=== PATIENT | male | born 1940 | race Caucasian/White ===

== ENCOUNTER 2016-07-05 10:51 | Inpatient (IN) ==
--- NOTE | 2016-07-05 11:05 | Emergency Department Note ---
Disposition Clinical Impression: Hyperglycemia Disposition: Admitted As Inpatient Condition: Fair Referrals: Ramone Sharma MD [Primary Care Provider] - Forms: Work/School Release, ED Satisfaction Letter Time of Disposition: 12:44 SOB HPI - General Chief Complaint: ED General Medical Stated Complaint: high blood sugar Time Seen by Provider: 07/05/16 11:02 Source: patient Limitations: physical limitation Nursing Notes Reviewed: Yes Vital Signs Reviewed: Yes - History of Present Illness 76-year-old with a history of CHF who comes in has an has Lasix for 3 days increasing swelling generalized weakness and shortness of breath. states she's not able to take care of the patient anymore. Echocardiogram done in October 2015 shows an EF of 55-60%. Pt Subjective Complaint: shortness of breath Onset (ago): Just [employer] Context: other (Not taking his Lasix) Known history of: congestive heart failure - Related Data Home Medications Medication Instructions Recorded Confirmed Furosemide [Lasix] 40 mg PO DAILY 11/20/15 07/05/16 Metformin [Glucophage] 1,000 mg PO BID 11/20/15 07/05/16 Tamsulosin [Flomax] 0.4 mg PO DAILY 11/20/15 07/05/16 Aspirin [Lo-Dose Aspirin EC] 81 mg PO DAILY 07/05/16 07/05/16 Atorvastatin [Lipitor] 20 mg PO HS 07/05/16 07/05/16 Dabigatran [Pradaxa] 150 mg PO DAILY 07/05/16 07/05/16 Insulin Glargine,Hum.rec.anlog 12 unit SQ BID 07/05/16 07/05/16 [Lantus Solostar] Insulin LISPRO [HumaLOG] 0 units SQ TIDWM PRN 07/05/16 07/05/16 Isosorbide MONOnitrate (24 HR) 60 mg PO DAILY 07/05/16 07/05/16 [Imdur] Metoprolol Tartrate 25 mg PO BID 07/05/16 07/05/16 Allergies Allergy/AdvReac Type Severity Reaction Status Date / Time Penicillins Allergy See Verified 10/02/15 16:22 Comments Sulfa (Sulfonamide Allergy See Verified 10/02/15 16:22 Antibiotics) Comments Past Medical History - Past Medical History Medical history: Reports: COPD, CVA, diabetes, hypertension Surgical history: Reports: coronary bypass (CABG), herniorrhaphy, pacemaker/AICD Psychiatric history: Reports: no psych history - Social History Smoking Status: Never smoker Smokeless Tobacco Status: No Alcohol use: Reports: none Drug use: Reports: none Physical Exam - General Limitations: physical limitation General appearance: alert Course - Reevaluation(s) Reevaluation #1: 76-year-old who comes in complaining of increased lower extremity edema elevated blood sugars generalized weakness. Patient's exam is nonlocalizing. Kos is elevated at 590. Previous echo done 2016 shows an EF of 55-60. Time: 13:29 - Consultations Consultation #1: Discussed with Kristel Mccormick, analilia. Time: 13:28 Vital Signs Temperature 97.9 F 07/05/16 10:54 Pulse Rate 94 07/05/16 10:54 Respiratory Rate 20 07/05/16 10:54 Blood Pressure 162/102 07/05/16 10:54 O2 Sat by Pulse Oximetry 92 L 07/05/16 10:54 Temperature 97.9 F 07/05/16 10:54 Pulse Rate 67 07/05/16 12:57 Respiratory Rate 16 07/05/16 12:57 Blood Pressure 167/105 07/05/16 12:57 O2 Sat by Pulse Oximetry 97 07/05/16 12:57 Oxygen Delivery Oxygen Delivery Room Air Shortness of Breath/Dyspnea - Lab Data Result diagrams: 07/05/16 12:07 07/05/16 12:07 Lab Results 07/05/16 07/05/16 07/05/16 Range/Units 11:12 12:07 12:07 WBC 7.8 (4.3-11.1) K/mcL RBC 4.09 L (4.19-5.50) M/mcL Hgb 11.3 L (12.9-16.9) g/dL Hct 35.1 L (37.5-50.1) % MCV 85.8 (83.0-100.0) fL MCH 27.6 L (28.0-33.3) pg MCHC 32.2 (31.6-35.5) g/dL RDW 14.0 (11.5-14.5) % Plt Count 168 (140-400) K/mcL MPV 11.0 (9.4-12.4) fL Immature Gran % 0.5 (0-4) % Seg Neutrophils % 77.8 % Lymphocytes % 13.2 % Monocytes % 7.0 % Eosinophils % 1.0 % Basophils % 0.5 % Neutrophils # 6.0 (1.6-8.9) K/mcL Lymphocytes # 1.0 (0.6-4.6) K/mcL Monocytes # 0.5 (0.0-1.3) K/mcL Eosinophils # 0.1 (0.0-0.6) K/mcL Basophils # 0.0 (0.0-0.2) K/mcL PT (9.4-12.1) Seconds INR APTT (26.0-36.0) Seconds Sodium (136-145) mEq/L Potassium (3.5-4.5) mEq/L Chloride (98-109) mEq/L Carbon Dioxide (19-29) mEq/L BUN (8-26) mg/dL Creatinine (0.72-1.25) mg/dL Est GFR ( Amer) (> 60) Est GFR (Non-Af Amer) (> 60) BUN/Creatinine Ratio (6-26) Glucose (70-99) mg/dL Calculated Osmolality (280-300) Lactic Acid 2.5 H (0.5-2.2) mmol/L Calcium (8.6-10.8) mg/dL Troponin I (0-0.03) ng/mL B-Natriuretic Peptide (0-100) pg/mL Urine Color Yellow (Yellow) Urine Clarity Clear (Clear) Urine pH 6.0 (5.0-8.0) pH Units Ur Specific [place] 1.025 (1.010-1.025) Urine Protein >=300 H (Neg-Trace) mg/dL Urine Glucose (UA) >=1000 H (Normal) mg/dL Urine Ketones Negative (Negative) mg/dL Urine Blood Small H (Negative) Urine Nitrite Negative (Negative) Urine Bilirubin Negative (Negative) Urine Urobilinogen Normal (Normal) mg/dL Ur Leukocyte Esterase Negative (Negative) Urine Microscopic RBC 5-15 H (0-3) per hpf Urine Microscopic WBC 0-3 (0-3) per hpf Ur Squamous Epith Cells Moderate H (None-Few) per lpf Urine Bacteria None Seen (None-Few) per hpf Hyaline Casts None Seen (None-Few) per lpf Ur Culture Indicated? NO (NO) 07/05/16 07/05/16 07/05/16 Range/Units 12:07 12:07 12:07 WBC (4.3-11.1) K/mcL RBC (4.19-5.50) M/mcL Hgb (12.9-16.9) g/dL Hct (37.5-50.1) % MCV (83.0-100.0) fL MCH (28.0-33.3) pg MCHC (31.6-35.5) g/dL RDW (11.5-14.5) % Plt Count (140-400) K/mcL MPV (9.4-12.4) fL Immature Gran % (0-4) % Seg Neutrophils % % Lymphocytes % % Monocytes % % Eosinophils % % Basophils % % Neutrophils # (1.6-8.9) K/mcL Lymphocytes # (0.6-4.6) K/mcL Monocytes # (0.0-1.3) K/mcL Eosinophils # (0.0-0.6) K/mcL Basophils # (0.0-0.2) K/mcL PT 14.9 H (9.4-12.1) Seconds INR 1.4 APTT 40.0 H (26.0-36.0) Seconds Sodium 127 L (136-145) mEq/L Potassium 4.0 (3.5-4.5) mEq/L Chloride 90 L (98-109) mEq/L Carbon Dioxide 27 (19-29) mEq/L BUN 23 (8-26) mg/dL Creatinine 1.62 H (0.72-1.25) mg/dL Est GFR ( Amer) 51 L (> 60) Est GFR (Non-Af Amer) 42 L (> 60) BUN/Creatinine Ratio 14 (6-26) Glucose 590 H* (70-99) mg/dL Calculated Osmolality 295 (280-300) Lactic Acid (0.5-2.2) mmol/L Calcium 8.8 (8.6-10.8) mg/dL Troponin I 0.07 H* (0-0.03) ng/mL B-Natriuretic Peptide (0-100) pg/mL Urine Color (Yellow) Urine Clarity (Clear) Urine pH (5.0-8.0) pH Units Ur Specific [place] (1.010-1.025) Urine Protein (Neg-Trace) mg/dL Urine Glucose (UA) (Normal) mg/dL Urine Ketones (Negative) mg/dL Urine Blood (Negative) Urine Nitrite (Negative) Urine Bilirubin (Negative) Urine Urobilinogen (Normal) mg/dL Ur Leukocyte Esterase (Negative) Urine Microscopic RBC (0-3) per hpf Urine Microscopic WBC (0-3) per hpf Ur Squamous Epith Cells (None-Few) per lpf Urine Bacteria (None-Few) per hpf Hyaline Casts (None-Few) per lpf Ur Culture Indicated? (NO) 07/05/16 Range/Units 12:07 WBC (4.3-11.1) K/mcL RBC (4.19-5.50) M/mcL Hgb (12.9-16.9) g/dL Hct (37.5-50.1) % MCV (83.0-100.0) fL MCH (28.0-33.3) pg MCHC (31.6-35.5) g/dL RDW (11.5-14.5) % Plt Count (140-400) K/mcL MPV (9.4-12.4) fL Immature Gran % (0-4) % Seg Neutrophils % % Lymphocytes % % Monocytes % % Eosinophils % % Basophils % % Neutrophils # (1.6-8.9) K/mcL Lymphocytes # (0.6-4.6) K/mcL Monocytes # (0.0-1.3) K/mcL Eosinophils # (0.0-0.6) K/mcL Basophils # (0.0-0.2) K/mcL PT (9.4-12.1) Seconds INR APTT (26.0-36.0) Seconds Sodium (136-145) mEq/L Potassium (3.5-4.5) mEq/L Chloride (98-109) mEq/L Carbon Dioxide (19-29) mEq/L BUN (8-26) mg/dL Creatinine (0.72-1.25) mg/dL Est GFR ( Amer) (> 60) Est GFR (Non-Af Amer) (> 60) BUN/Creatinine Ratio (6-26) Glucose (70-99) mg/dL Calculated Osmolality (280-300) Lactic Acid (0.5-2.2) mmol/L Calcium (8.6-10.8) mg/dL Troponin I (0-0.03) ng/mL B-Natriuretic Peptide 1018 H (0-100) pg/mL Urine Color (Yellow) Urine Clarity (Clear) Urine pH (5.0-8.0) pH Units Ur Specific [place] (1.010-1.025) Urine Protein (Neg-Trace) mg/dL Urine Glucose (UA) (Normal) mg/dL Urine Ketones (Negative) mg/dL Urine Blood (Negative) Urine Nitrite (Negative) Urine Bilirubin (Negative) Urine Urobilinogen (Normal) mg/dL Ur Leukocyte Esterase (Negative) Urine Microscopic RBC (0-3) per hpf Urine Microscopic WBC (0-3) per hpf Ur Squamous Epith Cells (None-Few) per lpf Urine Bacteria (None-Few) per hpf Hyaline Casts (None-Few) per lpf Ur Culture Indicated? (NO) - EKG Data EKG attestation: Yes I reviewed and interpreted this EKG. EKG results narrative: Paced rhythm
[2016-07-05 11:21] LABS: Bilirubin,Urine Negative (Negative); Blood,Urine Small (Negative); Clarity,Urine Clear (Clear); Color,Urine Yellow (Yellow); Glucose,Urine (UA) >=1000 mg/dL (Normal); Ketones,Urine Negative (Negative); Leukocyte Esterase,Urine Negative (Negative); Nitrite,Urine Negative (Negative); Protein,Urine >=300 mg/dL (Neg-Trace); Specific Gravity,Urine 1.025 (1.010-1.025); Urobilinogen,Urine Normal (Normal)
[2016-07-05 11:24] LABS: Bacteria,Urine None Seen per hpf (None-Few); Hyaline Casts,Urine None Seen per lpf (None-Few); Squamous Epithelial Cell,Urine Moderate per lpf (None-Few); WBC,Urine 0-3 per hpf (0-3)
[2016-07-05 12:19] LABS: Basophils % 0.5 %; Eosinophils # 0.1 K/mcL (0.0-0.6); Hematocrit 35.1 % (37.5-50.1); Hemoglobin 11.3 g/dL (12.9-16.9); Immature Granulocytes % 0.5 % (0-4); Lymphocytes % 13.2 %; Mean Corpuscular HGB Conc 32.2 g/dL (31.6-35.5); Mean Corpuscular Hemoglobin 27.6 pg (28.0-33.3); Mean Corpuscular Volume 85.8 fL (83.0-100.0); Monocytes # 0.5 K/mcL (0.0-1.3); Platelet Count 168 K/mcL (140-400); Red Blood Count 4.09 M/mcL (4.19-5.50); Segmented Neutrophils % 77.8 %
[2016-07-05 12:24] LABS: INR 1.4; Prothrombin Time 14.9 Seconds (9.4-12.1)
[2016-07-05 12:33] LABS: Calcium 8.8 mg/dL (8.6-10.8)
[2016-07-05] MEDS ORDERED: Insulin Human Regular 10 UNIT in 0.9 % Sodium Chloride 10 ML IV ONE (12:41)
[2016-07-05] MEDS ORDERED: Naloxone 0.4 MG/ML INJ IVP PRN (16:34)
[2016-07-05] MEDS ORDERED: *HR* Dextrose 50 % in Water (Syg) 50 ML SYRINGE IVP PRN (16:38)
[2016-07-05] MEDS ORDERED: Dextrose Gel 15 GM PO PRN ×2 (16:38)
[2016-07-05] MEDS ORDERED: D5% in Water 1,000 ML IV PRN (16:40)
[2016-07-05 17:47] LABS: Hemoglobin A1C 12.4 %
[2016-07-05] MEDS ORDERED: Insulin LISPRO 300 UNITS/3 ML VIAL SQ STA (17:48)
[2016-07-05] MEDS: *HR* LORazepam 0.5 MG TABLET PO PRN (20:49)
[2016-07-05] MEDS: *HR* Dabigatran 150 MG CAPSULE PO SCH (20:50)
[2016-07-05] MEDS: Insulin LISPRO 300 UNITS/3 ML VIAL SQ SCH (20:50)
[2016-07-05] MEDS: Insulin DETEMIR 100 UNIT/ML X5UNITS SQ SCH (20:51)
[2016-07-05] MEDS ORDERED: Sennosides 8.6 MG TABLET PO SCH (22:15)
[2016-07-05] MEDS ORDERED: Sennosides 8.6 MG TABLET PO PRN (22:28)
--- NOTE | 2016-07-05 22:56 | Internal Med History&Physical ---
<Kristel Mccormick - Last Filed: 07/06/16 01:29> Date of Encounter: 07/06/16 Time of Encounter: 22:50 Assessment and Plan (1) Hyperglycemia Current visit: Yes Status: Acute Patient reports he has not had any insulin in 3 days. Blood sugar 590. Anion gap of 10. UA shows large amount of protein but no ketones. He was given 10 units of insulin IV in the emergency department. Recheck of blood sugar came down to 398. He was given another 15 units subcutaneously Basal dose of insulin restarted with Levemir 12 units twice a day Check blood sugar every 4 hours sliding scale correction dose every 4 hours. Most recent blood sugar at 9 PM was 334 he was given his basal dose plus 10 units sliding scale correction dose. (2) Acute on chronic diastolic (congestive) heart failure Current visit: Yes Status: Acute Patient reports increasing lower extremity swelling. Reports he has not had his Lasix in 3 days. BNP elevated at 1018. Chest x-ray shows no evidence of failure or pleural fluid. Lungs are clear bilaterally on auscultation. He denies any shortness of breath, cough, dyspnea. Last echocardiogram was October 2015 and showed LVEF of 55-60% indeterminate diastolic function Will resume home dose of by mouth Lasix. (3) Edema Current visit: No Status: Acute Patient with mild bilateral lower extremity edema reportedly increased from baseline as he has not taken his Lasix in 3 days. Resume home dose of Lasix. Qualifiers: Edema type: localized Qualified Code(s): R60.0 - Localized edema (4) Elevated troponin Current visit: No Status: Acute Patient denies any chest pain or dyspnea. Troponin emergency department was elevated to 0.07, but down from his previous troponin of 0.11. EKG showed paced rhythm with no ischemic changes. 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 (5) Acute kidney injury Current visit: Yes Status: Acute Creatinine of 1.62 is elevated up from previous of 1.2. UA was not concerning for infection. He is spilling large amounts of protein in his urine likely related to his hyperglycemia. Not giving IV fluids because of concern for CHF. retroperitoneal ultrasound Postvoid residual Recheck chemistry in the morning (6) DVT prophylaxis Current visit: Yes Status: Acute To chair twice a day Antiembolic stockings Patient is on Pradaxa, additional pharmacologic prophylaxis is unnecessary Internal Medicine - H&P: HPI Chief complaint: increased swelling Admitted From: Emergency Dept Plans for Post Hospital Care: Home History of present illness: Mr. Benites is a 76 year old male with hypertension, diabetes, COPD, congestive heart failure, coronary artery disease status post CABG, pacemaker AICD, who reported today emergency department today with complaints of increased swelling in bilateral lower extremities. He reports his "stops taking care of me" three days ago and he has not been getting his insulin. He denied any shortness of breath, as pain, palpitations, lightheadedness, dizziness. He reports increased bilateral lower extremity swelling and as a result of this feels like he cannot walk. Evaluation in the emergency department included chest x-ray which showed no evidence of heart failure or pleural fluid. His BNP was elevated to 1018, his troponin was elevated at 0.08 he was hyponatremic with sodium of 127, hyperglycemic with blood sugar of 590. He has Acute kidney injury with Creatinine of 1.62, up from previous of 1.22. Anion gap is 10 creatinine 1.6 to which is consistent with baseline EKG. Lactic acid mildly elevated 2.5. He showed significant urine protein but was negative for ketones. He is given 10 units of IV insulin in the emergency department blood sugar came down to 300s on recheck. On evaluation, patient is alert and oriented 3, in no acute distress. He pain, denies any shortness of breath. His heart is regular rate and rhythm, lungs are clear bilaterally to auscultation. Bilateral lower extremities have +2 edema is a chronic stage V pressure ulcer on his left heel with black eschar. Past Med Surg Social Fam HX - Past Medical History Medical history: CHF, COPD, coronary artery disease, CVA, diabetes, hypertension , renal disease Psychiatric history: no psych history - Past Surgical History Surgical History: coronary bypass (CABG), herniorrhaphy, pacemaker/AICD - Social History Smoking Status: Never smoker Smokeless Tobacco Status: No Alcohol use: none Drug use: none - Family History Father History Unknown: Yes Adopted: No Family Member Ethnicity: Non- Living Status: Hx Family Cardiac Disorders: Yes Hx Family Respiratory Disorders: No Hx Family Cancer: No Hx Family GI Disorders: No Hx Family Endocrine Disorder: Yes Hx Family Neuromuscular Disorders: No Hx Family Neurologic Disorders: No Hx Family HEENT Disorders: No Hx Family Autoimmune Disorders: No Mother History Unknown: Yes Living Status: Hx Family Cardiac Disorders: Yes Hx Family Musculoskeletal Disorders: Yes Internal Medicine - H&P: Meds Furosemide [Lasix] 40 mg PO DAILY 11/20/15 [History] Metformin [Glucophage] 1,000 mg PO BID 11/20/15 [History] Tamsulosin [Flomax] 0.4 mg PO DAILY 11/20/15 [History] Aspirin [Lo-Dose Aspirin EC] 81 mg PO DAILY 07/05/16 [History] Atorvastatin [Lipitor] 20 mg PO HS 07/05/16 [History] Dabigatran [Pradaxa] 150 mg PO DAILY 07/05/16 [History] Insulin Glargine,Hum.rec.anlog [Lantus Solostar] 12 unit SQ BID 07/05/16 [ History] Insulin LISPRO [HumaLOG] 0 units SQ TIDWM PRN 07/05/16 [History] Isosorbide MONOnitrate (24 HR) [Imdur] 60 mg PO DAILY 07/05/16 [History] Metoprolol Tartrate 25 mg PO BID 07/05/16 [History] Allergies Penicillins Allergy (Verified 10/02/15 16:22) See Comments Sulfa (Sulfonamide Antibiotics) Allergy (Verified 10/02/15 16:22) See Comments All Systems PM: A 10-system review of systems was performed and is negative for pertinent findings except as documented above in the HPI. - Constitutional Constitutional: no chills, no fever(s), no night sweats - EENT Eyes: no change in vision, no discharge, no pain, no photophobia Ears: no ear discharge, no ear pain, no tinnitus Nose, mouth and throat: no dysphagia, no nasal discharge, no neck pain, no sore throat - Cardiovascular Cardiovascular ROS IM: edema, no chest pain, no diaphoresis, no dyspnea, no lightheadedness, no palpitations, no syncope - Respiratory Respiratory: no cough, no dyspnea, no wheezing, no excessive phlegm production - Gastrointestinal Gastrointestinal: no abdominal pain, no diarrhea, no hematemesis, no hematochezia, no melena, no nausea, no vomiting - Musculoskeletal Musculoskeletal ROS IM: no numbness, no tingling - Integumentary Integumentary IM: non-healing lesions (left heel), no rash, no unusual bruising - Neurological Neurological ROS: no confusion, no convulsions, no focal weakness, no numbness, no tingling, no tremor(s) - Hematologic/Lymphatic Hematologic/Lymphatic: no easy bruising - Constitutional Vitals: Temp Pulse Resp BP Pulse Ox 98.2 F 68 17 136/74 94 L 07/05/16 15:35 07/05/16 21:00 07/05/16 21:00 07/05/16 21:00 07/05/16 21:00 General appearance: Present: A&O X 3, no acute distress - Head Head exam: Present: atraumatic, normocephalic - Eye Eye exam: Present: PERRL, conjuntiva pink, sclera anicteric Pupils: Present: PERRL - Neck Neck exam general surgery: Present: supple, trachea midline. Absent: lymphadenopathy - Respiratory Respiratory exam: Present: CTAB. Absent: accessory muscle use, rales, rhonchi, wheezes - Cardiovascular Cardiovascular exam: Present: RRR, +S1, +S2. Absent: diastolic murmur, gallop, rubs, systolic murmur - GI/Abdominal GI/Abdominal exam: Present: normal bowel sounds, soft, no peritoneal signs. Absent: distended, tenderness - Extremities Exam Extremities exam: Present: pedal edema (BLE +2 edema), warm, radial pulses palpable and symetrical. Absent: calf tenderness, cyanotic - Neurological Exam Neurological exam: Present: CN II-XII intact, oriented X3, no focal deficits. Absent: facial droop, speech deficit - Skin Skin exam: Present: dry, intact Additional comments: Left Heel stage 5 ulcer with black eschar. Internal Med - H&P Results - Labs CBC & Chem 7: 07/06/16 01:13 07/05/16 12:07 Labs: Cardiac Enzymes 07/05/16 Range/Units 17:40 Troponin I 0.07 H* (0-0.03) ng/mL All Lab Results (24 Hours) 07/05/16 07/05/16 07/05/16 Range/Units 11:12 12:07 12:07 WBC 7.8 (4.3-11.1) K/mcL RBC 4.09 L (4.19-5.50) M/mcL Hgb 11.3 L (12.9-16.9) g/dL Hct 35.1 L (37.5-50.1) % MCV 85.8 (83.0-100.0) fL MCH 27.6 L (28.0-33.3) pg MCHC 32.2 (31.6-35.5) g/dL RDW 14.0 (11.5-14.5) % Plt Count 168 (140-400) K/mcL MPV 11.0 (9.4-12.4) fL Immature Gran % 0.5 (0-4) % Seg Neutrophils % 77.8 % Lymphocytes % 13.2 % Monocytes % 7.0 % Eosinophils % 1.0 % Basophils % 0.5 % Neutrophils # 6.0 (1.6-8.9) K/mcL Lymphocytes # 1.0 (0.6-4.6) K/mcL Monocytes # 0.5 (0.0-1.3) K/mcL Eosinophils # 0.1 (0.0-0.6) K/mcL Basophils # 0.0 (0.0-0.2) K/mcL PT (9.4-12.1) Seconds INR APTT (26.0-36.0) Seconds Sodium (136-145) mEq/L Potassium (3.5-4.5) mEq/L Chloride (98-109) mEq/L Carbon Dioxide (19-29) mEq/L BUN (8-26) mg/dL Creatinine (0.72-1.25) mg/dL Est GFR ( Amer) (> 60) Est GFR (Non-Af Amer) (> 60) BUN/Creatinine Ratio (6-26) Glucose (70-99) mg/dL POC Glucose (58-89) Est Mean Plasma Glucose mg/dl Hemoglobin A1c ( - 5.6) % Calculated Osmolality (280-300) Lactic Acid 2.5 H (0.5-2.2) mmol/L Calcium (8.6-10.8) mg/dL Troponin I (0-0.03) ng/mL B-Natriuretic Peptide (0-100) pg/mL Urine Color Yellow (Yellow) Urine Clarity Clear (Clear) Urine pH 6.0 (5.0-8.0) pH Units Ur Specific [place] 1.025 (1.010-1.025) Urine Protein >=300 H (Neg-Trace) mg/dL Urine Glucose (UA) >=1000 H (Normal) mg/dL Urine Ketones Negative (Negative) mg/dL Urine Blood Small H (Negative) Urine Nitrite Negative (Negative) Urine Bilirubin Negative (Negative) Urine Urobilinogen Normal (Normal) mg/dL Ur Leukocyte Esterase Negative (Negative) Urine Microscopic RBC 5-15 H (0-3) per hpf Urine Microscopic WBC 0-3 (0-3) per hpf Ur Squamous Epith Cells Moderate H (None-Few) per lpf Urine Bacteria None Seen (None-Few) per hpf Hyaline Casts None Seen (None-Few) per lpf Ur Culture Indicated? NO (NO) 07/05/16 07/05/16 07/05/16 Range/Units 12:07 12:07 12:07 WBC (4.3-11.1) K/mcL RBC (4.19-5.50) M/mcL Hgb (12.9-16.9) g/dL Hct (37.5-50.1) % MCV (83.0-100.0) fL MCH (28.0-33.3) pg MCHC (31.6-35.5) g/dL RDW (11.5-14.5) % Plt Count (140-400) K/mcL MPV (9.4-12.4) fL Immature Gran % (0-4) % Seg Neutrophils % % Lymphocytes % % Monocytes % % Eosinophils % % Basophils % % Neutrophils # (1.6-8.9) K/mcL Lymphocytes # (0.6-4.6) K/mcL Monocytes # (0.0-1.3) K/mcL Eosinophils # (0.0-0.6) K/mcL Basophils # (0.0-0.2) K/mcL PT 14.9 H (9.4-12.1) Seconds INR 1.4 APTT 40.0 H (26.0-36.0) Seconds Sodium 127 L (136-145) mEq/L Potassium 4.0 (3.5-4.5) mEq/L Chloride 90 L (98-109) mEq/L Carbon Dioxide 27 (19-29) mEq/L BUN 23 (8-26) mg/dL Creatinine 1.62 H (0.72-1.25) mg/dL Est GFR ( Amer) 51 L (> 60) Est GFR (Non-Af Amer) 42 L (> 60) BUN/Creatinine Ratio 14 (6-26) Glucose 590 H* (70-99) mg/dL POC Glucose (58-89) Est Mean Plasma Glucose mg/dl Hemoglobin A1c ( - 5.6) % Calculated Osmolality 295 (280-300) Lactic Acid (0.5-2.2) mmol/L Calcium 8.8 (8.6-10.8) mg/dL Troponin I 0.07 H* (0-0.03) ng/mL B-Natriuretic Peptide (0-100) pg/mL Urine Color (Yellow) Urine Clarity (Clear) Urine pH (5.0-8.0) pH Units Ur Specific [place] (1.010-1.025) Urine Protein (Neg-Trace) mg/dL Urine Glucose (UA) (Normal) mg/dL Urine Ketones (Negative) mg/dL Urine Blood (Negative) Urine Nitrite (Negative) Urine Bilirubin (Negative) Urine Urobilinogen (Normal) mg/dL Ur Leukocyte Esterase (Negative) Urine Microscopic RBC (0-3) per hpf Urine Microscopic WBC (0-3) per hpf Ur Squamous Epith Cells (None-Few) per lpf Urine Bacteria (None-Few) per hpf Hyaline Casts (None-Few) per lpf Ur Culture Indicated? (NO) 07/05/16 07/05/16 07/05/16 Range/Units 12:07 12:07 15:41 WBC (4.3-11.1) K/mcL RBC (4.19-5.50) M/mcL Hgb (12.9-16.9) g/dL Hct (37.5-50.1) % MCV (83.0-100.0) fL MCH (28.0-33.3) pg MCHC (31.6-35.5) g/dL RDW (11.5-14.5) % Plt Count (140-400) K/mcL MPV (9.4-12.4) fL Immature Gran % (0-4) % Seg Neutrophils % % Lymphocytes % % Monocytes % % Eosinophils % % Basophils % % Neutrophils # (1.6-8.9) K/mcL Lymphocytes # (0.6-4.6) K/mcL Monocytes # (0.0-1.3) K/mcL Eosinophils # (0.0-0.6) K/mcL Basophils # (0.0-0.2) K/mcL PT (9.4-12.1) Seconds INR APTT (26.0-36.0) Seconds Sodium (136-145) mEq/L Potassium (3.5-4.5) mEq/L Chloride (98-109) mEq/L Carbon Dioxide (19-29) mEq/L BUN (8-26) mg/dL Creatinine (0.72-1.25) mg/dL Est GFR ( Amer) (> 60) Est GFR (Non-Af Amer) (> 60) BUN/Creatinine Ratio (6-26) Glucose (70-99) mg/dL POC Glucose 398 H (58-89) Est Mean Plasma Glucose 309 mg/dl Hemoglobin A1c 12.4 H ( - 5.6) % Calculated Osmolality (280-300) Lactic Acid (0.5-2.2) mmol/L Calcium (8.6-10.8) mg/dL Troponin I (0-0.03) ng/mL B-Natriuretic Peptide 1018 H (0-100) pg/mL Urine Color (Yellow) Urine Clarity (Clear) Urine pH (5.0-8.0) pH Units Ur Specific [place] (1.010-1.025) Urine Protein (Neg-Trace) mg/dL Urine Glucose (UA) (Normal) mg/dL Urine Ketones (Negative) mg/dL Urine Blood (Negative) Urine Nitrite (Negative) Urine Bilirubin (Negative) Urine Urobilinogen (Normal) mg/dL Ur Leukocyte Esterase (Negative) Urine Microscopic RBC (0-3) per hpf Urine Microscopic WBC (0-3) per hpf Ur Squamous Epith Cells (None-Few) per lpf Urine Bacteria (None-Few) per hpf Hyaline Casts (None-Few) per lpf Ur Culture Indicated? (NO) 07/05/16 Range/Units 17:40 WBC (4.3-11.1) K/mcL RBC (4.19-5.50) M/mcL Hgb (12.9-16.9) g/dL Hct (37.5-50.1) % MCV (83.0-100.0) fL MCH (28.0-33.3) pg MCHC (31.6-35.5) g/dL RDW (11.5-14.5) % Plt Count (140-400) K/mcL MPV (9.4-12.4) fL Immature Gran % (0-4) % Seg Neutrophils % % Lymphocytes % % Monocytes % % Eosinophils % % Basophils % % Neutrophils # (1.6-8.9) K/mcL Lymphocytes # (0.6-4.6) K/mcL Monocytes # (0.0-1.3) K/mcL Eosinophils # (0.0-0.6) K/mcL Basophils # (0.0-0.2) K/mcL PT (9.4-12.1) Seconds INR APTT (26.0-36.0) Seconds Sodium (136-145) mEq/L Potassium (3.5-4.5) mEq/L Chloride (98-109) mEq/L Carbon Dioxide (19-29) mEq/L BUN (8-26) mg/dL Creatinine (0.72-1.25) mg/dL Est GFR ( Amer) (> 60) Est GFR (Non-Af Amer) (> 60) BUN/Creatinine Ratio (6-26) Glucose (70-99) mg/dL POC Glucose (58-89) Est Mean Plasma Glucose mg/dl Hemoglobin A1c ( - 5.6) % Calculated Osmolality (280-300) Lactic Acid (0.5-2.2) mmol/L Calcium (8.6-10.8) mg/dL Troponin I 0.07 H* (0-0.03) ng/mL B-Natriuretic Peptide (0-100) pg/mL Urine Color (Yellow) Urine Clarity (Clear) Urine pH (5.0-8.0) pH Units Ur Specific [place] (1.010-1.025) Urine Protein (Neg-Trace) mg/dL Urine Glucose (UA) (Normal) mg/dL Urine Ketones (Negative) mg/dL Urine Blood (Negative) Urine Nitrite (Negative) Urine Bilirubin (Negative) Urine Urobilinogen (Normal) mg/dL Ur Leukocyte Esterase (Negative) Urine Microscopic RBC (0-3) per hpf Urine Microscopic WBC (0-3) per hpf Ur Squamous Epith Cells (None-Few) per lpf Urine Bacteria (None-Few) per hpf Hyaline Casts (None-Few) per lpf Ur Culture Indicated? (NO) - VTE Documentation of Mechanical Device: Graduated compression elastic hosiery <Pradeep Guerrero - Last Filed: 07/07/16 06:43> Date of Encounter: 07/07/16 Internal Medicine - H&P: HPI History of present illness: Mr. Benites is a 76 year old male All Systems PM: A 10-system review of systems was performed and is negative for pertinent findings except as documented above in the HPI. - Constitutional Vitals: Temp Pulse Resp BP Pulse Ox 98.3 F 64 20 124/80 93 L 07/07/16 04:30 07/07/16 04:30 07/07/16 04:30 07/07/16 04:30 07/07/16 04:30 Internal Med - H&P Results - Labs CBC & Chem 7: 07/06/16 01:13 07/06/16 01:13 - Impressions ITS Impressions Retroperitoneum Ultrasound 07/06/16 15:00 IMPRESSION: 1. Normal sonographic appearance of the bilateral kidneys. 2. Limited evaluation of the urinary bladder secondary to lack of complete filling. Grossly, the urinary bladder is unremarkable. 3. Stable mild prostatomegaly. D/ / 07/06/2016 16:54:16 Yang Martinez MD / Alysia Beltran Interpreting Provider: Yang Martinez MD - Attending Attestation I examined this patient and my medical decision-making was reviewed with the Advanced Practice Provider. I agree with the documented findings, disposition and treatment plan as described except to the extent set forth below. Patient presented to the hospital with increasing lower extremity swelling. On exam he is in no acute distress heart is regular S1-S2 with a systolic and a diastolic murmur. Lungs are clear. Lower extremity edema. We will admit the patient for treatment of acute heart failure. We will monitor on telemetry. Start diuresis with IV Lasix.
[2016-07-06] MEDS ORDERED: Famotidine 20 MG TABLET PO ONE ×2 (00:45→23:45)
[2016-07-06] MEDS: Insulin LISPRO 300 UNITS/3 ML VIAL SQ SCH ×7 (00:47→23:42)
[2016-07-06 01:22] LABS: Basophils % 0.5 %; Eosinophils # 0.1 K/mcL (0.0-0.6); Eosinophils % 1.5 %; Hematocrit 31.7 % (37.5-50.1); Hemoglobin 10.4 g/dL (12.9-16.9); Immature Granulocytes % 0.6 % (0-4); Lymphocytes # 1.5 K/mcL (0.6-4.6); Lymphocytes % 16.9 %; Mean Corpuscular HGB Conc 32.8 g/dL (31.6-35.5); Mean Corpuscular Hemoglobin 27.9 pg (28.0-33.3); Monocytes # 0.8 K/mcL (0.0-1.3); Monocytes % 8.5 %; Neutrophils # 6.4 K/mcL (1.6-8.9); Platelet Count 158 K/mcL (140-400); Red Blood Count 3.73 M/mcL (4.19-5.50)
[2016-07-06 01:36] LABS: Calcium 8.6 mg/dL (8.6-10.8); Potassium 3.7 mEq/L (3.5-4.5)
[2016-07-06] MEDS ORDERED: Furosemide 20 MG TABLET PO SCH (09:00)
[2016-07-06] MEDS: *HR* Dabigatran 150 MG CAPSULE PO SCH ×2 (09:43→21:17)
[2016-07-06] MEDS: Aspirin Enteric Coated 81 MG Tablet PO SCH (09:44)
[2016-07-06] MEDS: Isosorbide MONOnitrate (24 HR) 60 MG TAB.ER.24H PO SCH (09:44)
[2016-07-06] MEDS: Insulin DETEMIR 100 UNIT/ML X5UNITS SQ SCH ×2 (09:45→21:31)
--- NOTE | 2016-07-06 15:51 | Internal Med Progress Note ---
<Yasir Quiñones - Last Filed: 07/06/16 15:48> Date of Encounter: 07/06/16 Time of Encounter: 15:48 - Assessment and plan (1) Hyperglycemia Current Visit: Yes Status: Acute Assessment and plan: Likely related to noncompliance with this medicine. No evidence of DKA or HHS. Blood sugars have been much improved once restarted on insulin. Continue insulin. (2) Acute kidney injury Current Visit: Yes Status: Acute Assessment and plan: Gradually improving. Good urine output. Likely related to intravascular depletion in the setting of third spacing. Continue diuresis and will continue to monitor renal function (3) Acute on chronic diastolic (congestive) heart failure Current Visit: Yes Status: Acute Assessment and plan: Acute fluid overload related to patient being without his Lasix. Patient is diuresing well. Continue Lasix. (4) Elevated troponin Current Visit: No Status: Acute Assessment and plan: Likely related to demand ischemia in the setting of hyperglycemia and acute fluid overload as well as acute kidney injury. Troponins plateaued. Doubt acute coronary syndrome. (5) DVT prophylaxis Current Visit: Yes Status: Acute Assessment and plan: Currently on Pradaxa - Subjective Interval history: Patient seen and examined at bedside. Patient has no complaints at this time. He states the swelling is slightly improved. He denies chest pain, shortness of breath, fever, chills. - Constitutional Vitals: Temp Pulse Resp BP Pulse Ox 97.1 F L 61 18 137/88 95 07/06/16 07:27 07/06/16 11:43 07/06/16 11:43 07/06/16 11:43 07/06/16 11:43 General appearance: Present: A&O X 3, no acute distress - Respiratory Respiratory exam: Present: CTAB. Absent: rales, rhonchi, wheezes - Cardiovascular Cardiovascular exam: Present: RRR. Absent: gallop, rubs, systolic murmur - GI/Abdominal GI/Abdominal exam: Present: normal bowel sounds, soft. Absent: distended, tenderness - Extremities Exam Extremities exam: Present: pedal edema (trace) - Neurological Exam Neurological exam: Present: alert, altered, oriented X3, no focal deficits Internal Medicine: Result - Labs CBC & Chem 7: 07/06/16 01:13 07/06/16 01:13 Labs: Short CBC 07/06/16 Range/Units 01:13 WBC 8.8 (4.3-11.1) K/mcL Hgb 10.4 L (12.9-16.9) g/dL Hct 31.7 L (37.5-50.1) % Plt Count 158 (140-400) K/mcL Neutrophils # 6.4 (1.6-8.9) K/mcL BMP 07/06/16 01:13 Sodium 131 L Potassium 3.7 Chloride 94 L Carbon Dioxide 30 H BUN 28 H Creatinine 1.52 H Glucose 257 H Calcium 8.6 Cardiac Enzymes 07/05/16 07/06/16 Range/Units 17:40 01:13 Troponin I 0.07 H* 0.07 H* (0-0.03) ng/mL - ABG Interpretation ABG results: PT/INR, D-dimer PT 14.9 Seconds (9.4-12.1) H 07/05/16 12:07 - VTE Documentation of Mechanical Device: Graduated compression elastic hosiery Consult Discharge Plan - Plan Referrals: Ramone Sharma MD [Primary Care Provider] - <Lance Fournier - Last Filed: 07/06/16 18:37> Date of Encounter: 07/06/16 - Assessment and plan (1) Acute on chronic diastolic (congestive) heart failure Current Visit: Yes Status: Acute (2) Diabetes Current Visit: Yes Status: Acute Qualifiers: Diabetes mellitus type: type 2 Diabetes mellitus complication status: with hyperglycemia Diabetes mellitus detention insulin use: with detention use Qualified Code(s): E11.65 - Type 2 diabetes mellitus with hyperglycemia; Z79.4 - prison (current) use of insulin (3) Acute kidney injury Current Visit: Yes Status: Acute (4) Hypertension Current Visit: Yes Status: Acute Qualifiers: Hypertension type: essential hypertension Qualified Code(s): I10 - Essential (primary) hypertension - Constitutional Vitals: Temp Pulse Resp BP Pulse Ox 97.1 F L 61 18 137/88 95 07/06/16 07:27 07/06/16 11:43 07/06/16 11:43 07/06/16 11:43 07/06/16 11:43 Internal Medicine: Result - Labs CBC & Chem 7: 07/06/16 01:13 07/06/16 01:13 Labs: Short CBC 07/06/16 Range/Units 01:13 WBC 8.8 (4.3-11.1) K/mcL Hgb 10.4 L (12.9-16.9) g/dL Hct 31.7 L (37.5-50.1) % Plt Count 158 (140-400) K/mcL Neutrophils # 6.4 (1.6-8.9) K/mcL BMP 07/06/16 01:13 Sodium 131 L Potassium 3.7 Chloride 94 L Carbon Dioxide 30 H BUN 28 H Creatinine 1.52 H Glucose 257 H Calcium 8.6 Cardiac Enzymes 07/06/16 Range/Units 01:13 Troponin I 0.07 H* (0-0.03) ng/mL - ABG Interpretation ABG results: PT/INR, D-dimer PT 14.9 Seconds (9.4-12.1) H 07/05/16 12:07 - Impressions Impressions Retroperitoneum Ultrasound 07/06/16 15:00 IMPRESSION: 1. Normal sonographic appearance of the bilateral kidneys. 2. Limited evaluation of the urinary bladder secondary to lack of complete filling. Grossly, the urinary bladder is unremarkable. 3. Stable mild prostatomegaly. D/ / 07/06/2016 16:54:16 Yang Martinez MD / Alysia Beltran Interpreting Provider: Yang Martinez MD - Attending Attestation I examined this patient and my medical decision-making was reviewed with the Resident Physician on 07/06/16. I agree with the documented findings, disposition and treatment plan as described except to the extent set forth below. Mr Benites is currently admitted for acute diastolic heart failure and hyperglycemia. He is moderate to high risk due to potential for worsening heart and respiratory symptoms and hyperglycemia. Mr. Benites wants to talk with social work about going to a facility. Denies pain at this time. Concerned about sugar. Exam Alert. Heart reg Lungs no wheeze Edema present I/P 1. Acute on chronic diastolic heart failure due to noncompliance with meds 2. Hyperglycemia 3. Diabetes 4. AARTI 5. HTN Further diagnoses and plan as above.
[2016-07-06] MEDS: Gentamicin Oint 15 GM TUBE TP SCH (16:51)
--- NOTE | 2016-07-06 19:01 | Electrocardiograph Report ---
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
[2016-07-06] MEDS: Furosemide 40 MG/4 ML VIAL IVP SCH (21:16)
[2016-07-06] MEDS: *HR* LORazepam 0.5 MG TABLET PO PRN (21:17)
[2016-07-07] MEDS: Insulin LISPRO 300 UNITS/3 ML VIAL SQ SCH ×5 (04:42→17:11)
[2016-07-07] MEDS: Insulin DETEMIR 100 UNIT/ML X5UNITS SQ SCH ×2 (08:10→22:22)
[2016-07-07] MEDS: Isosorbide MONOnitrate (24 HR) 60 MG TAB.ER.24H PO SCH (08:11)
[2016-07-07] MEDS: Aspirin Enteric Coated 81 MG Tablet PO SCH (08:12)
[2016-07-07] MEDS: Furosemide 40 MG/4 ML VIAL IVP SCH ×2 (08:12→22:14)
[2016-07-07] MEDS: *HR* Dabigatran 150 MG CAPSULE PO SCH ×2 (08:12→22:12)
--- NOTE | 2016-07-07 14:35 | Internal Med Progress Note ---
<EdmundoYasir garibay - Last Filed: 07/07/16 14:32> Date of Encounter: 07/07/16 Time of Encounter: 14:32 - Assessment and plan (1) Hyperglycemia Current Visit: Yes Status: Acute Assessment and plan: Likely related to noncompliance with this medicine. No evidence of DKA or HHS. Blood sugars have been much improved once restarted on insulin. Continue insulin. feels that she cannot take care of at home. Patient would like to be placed in an ECF but the specific ECF that he would like to go to not have any beds at this time. We will continue to work with the patient to determine placement. (2) Acute kidney injury Current Visit: Yes Status: Acute Assessment and plan: Gradually improving. Good urine output. Likely related to intravascular depletion in the setting of third spacing. Continue diuresis and will continue to monitor renal function (3) Acute on chronic diastolic (congestive) heart failure Current Visit: Yes Status: Acute Assessment and plan: Acute fluid overload related to patient being without his Lasix. Patient is diuresing well. Continue Lasix. (4) Elevated troponin Current Visit: No Status: Acute Assessment and plan: Likely related to demand ischemia in the setting of hyperglycemia and acute fluid overload as well as acute kidney injury. Troponins plateaued. Doubt acute coronary syndrome. (5) DVT prophylaxis Current Visit: Yes Status: Acute Assessment and plan: Currently on Pradaxa - Subjective Interval history: Patient seen and examined at bedside. Patient has no specific complaints at this time. He states people are talking behind his back but has no specific complaints. Patient would not participate in the interview any further. - Constitutional Vitals: Temp Pulse Resp BP Pulse Ox 98.3 F 67 18 129/79 96 07/07/16 07:00 07/07/16 07:00 07/07/16 07:00 07/07/16 07:00 07/07/16 07:00 General appearance: Present: A&O X 3, no acute distress - Respiratory Respiratory exam: Present: decreased breath sounds. Absent: rales, rhonchi, wheezes - GI/Abdominal GI/Abdominal exam: Present: normal bowel sounds, soft. Absent: distended, tenderness - Extremities Exam Extremities exam: Present: pedal edema (1+). Absent: tenderness - Neurological Exam Neurological exam: Present: alert, CN II-XII intact, oriented X3, no focal deficits - Psychiatric Psychiatric exam: Present: agitated Internal Medicine: Result - Labs CBC & Chem 7: 07/06/16 01:13 07/06/16 01:13 - ABG Interpretation ABG results: PT/INR, D-dimer PT 14.9 Seconds (9.4-12.1) H 07/05/16 12:07 - Impressions Impressions Retroperitoneum Ultrasound 07/06/16 15:00 IMPRESSION: 1. Normal sonographic appearance of the bilateral kidneys. 2. Limited evaluation of the urinary bladder secondary to lack of complete filling. Grossly, the urinary bladder is unremarkable. 3. Stable mild prostatomegaly. D/ / 07/06/2016 16:54:16 Yang Martinez MD / Alysia Beltran Interpreting Provider: Yang Martinez MD - VTE Documentation of Mechanical Device: Graduated compression elastic hosiery Consult Discharge Plan - Plan Referrals: Ramone Sharma MD [Primary Care Provider] - <Lance Fournier - Last Filed: 07/07/16 18:37> Date of Encounter: 07/07/16 - Assessment and plan (1) Acute on chronic diastolic (congestive) heart failure Current Visit: Yes Status: Acute (2) Diabetes Current Visit: Yes Status: Acute Qualifiers: Diabetes mellitus type: type 2 Diabetes mellitus complication status: with hyperglycemia Diabetes mellitus 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 Qualified Code(s): E11.65 - Type 2 diabetes mellitus with hyperglycemia; Z79.4 - care home (current) use of insulin (3) Acute kidney injury Current Visit: Yes Status: Acute (4) Hypertension Current Visit: Yes Status: Acute Qualifiers: Hypertension type: essential hypertension Qualified Code(s): I10 - Essential (primary) hypertension - Constitutional Vitals: Temp Pulse Resp BP Pulse Ox 97.8 F 59 18 142/80 96 07/07/16 15:00 07/07/16 15:00 07/07/16 15:00 07/07/16 15:00 07/07/16 15:00 Internal Medicine: Result - Labs CBC & Chem 7: 07/06/16 01:13 07/06/16 01:13 - ABG Interpretation ABG results: PT/INR, D-dimer PT 14.9 Seconds (9.4-12.1) H 07/05/16 12:07 - Impressions Impressions Retroperitoneum Ultrasound 07/06/16 15:00 IMPRESSION: 1. Normal sonographic appearance of the bilateral kidneys. 2. Limited evaluation of the urinary bladder secondary to lack of complete filling. Grossly, the urinary bladder is unremarkable. 3. Stable mild prostatomegaly. D/ / 07/06/2016 16:54:16 Yang Martinez MD / Alysia Beltran Interpreting Provider: Yang Martinez MD - Attending Attestation I examined this patient and my medical decision-making was reviewed with the Resident Physician on 07/07/16. I agree with the documented findings, disposition and treatment plan as described except to the extent set forth below. Mr. Benites is currently admitted for hyperglycemia and acute exac CHF. He remains moderate risk due to need to monitor glucose and diuresis. Mr. Benites denies new issues. Has been diuresing. No CP or SOB currently Exam Alert. Comfortable Heart reg Lungs diminished Edema present I/P 1. Acute exac CHF 2. Diabetes Further diagnoses and plan as above.
[2016-07-07] MEDS: Gentamicin Oint 15 GM TUBE TP SCH (16:04)
[2016-07-07] MEDS ORDERED: Insulin LISPRO 300 UNITS/3 ML VIAL SQ SCH (21:00)
[2016-07-07] MEDS: *HR* LORazepam 0.5 MG TABLET PO PRN (22:35)
[2016-07-08 06:06] LABS: Basophils % 0.4 %; Eosinophils # 0.2 K/mcL (0.0-0.6); Eosinophils % 1.5 %; Hematocrit 30.8 % (37.5-50.1); Hemoglobin 10.1 g/dL (12.9-16.9); Immature Granulocytes % 0.8 % (0-4); Lymphocytes # 1.5 K/mcL (0.6-4.6); Lymphocytes % 14.3 %; Mean Corpuscular HGB Conc 32.8 g/dL (31.6-35.5); Mean Corpuscular Hemoglobin 28.2 pg (28.0-33.3); Mean Platelet Volume 11.4 fL (9.4-12.4); Monocytes # 0.9 K/mcL (0.0-1.3); Monocytes % 8.9 %; Neutrophils # 7.5 K/mcL (1.6-8.9); Platelet Count 138 K/mcL (140-400); Red Blood Count 3.58 M/mcL (4.19-5.50); Red Cell Distribution Width 14.2 % (11.5-14.5); Segmented Neutrophils % 74.1 %
[2016-07-08 06:15] LABS: Calcium 8.4 mg/dL (8.6-10.8)
[2016-07-08] MEDS ORDERED: Ondansetron 4 MG/2 ML VIAL IVP PRN (08:57)
[2016-07-08] MEDS ORDERED: Pantoprazole 40 MG VIAL IVP SCH (09:00)
[2016-07-08] MEDS ORDERED: Furosemide 40 MG TABLET PO SCH (09:00)
[2016-07-08] MEDS: Isosorbide MONOnitrate (24 HR) 60 MG TAB.ER.24H PO SCH (09:34)
[2016-07-08] MEDS: *HR* Dabigatran 150 MG CAPSULE PO SCH (09:34)
[2016-07-08] MEDS: Aspirin Enteric Coated 81 MG Tablet PO SCH (09:34)
[2016-07-08] MEDS: Insulin LISPRO 300 UNITS/3 ML VIAL SQ SCH ×2 (09:35→12:06)
[2016-07-08 11:57] VITALS: BP 137/78
[2016-07-08] MEDS: Insulin DETEMIR 100 UNIT/ML X5UNITS SQ SCH (12:06)
--- NOTE | 2016-07-08 13:50 | Discharge Summary ---
<Yasir Quiñones - Last Filed: 07/08/16 13:56> Date of Encounter: 07/08/16 Time of Encounter: 13:48 - Discharge Diagnosis (1) Hyperglycemia Priority: Primary Status: Acute (2) Acute kidney injury Priority: Primary Status: Acute (3) Acute on chronic diastolic (congestive) heart failure Priority: Primary Status: Acute (4) Elevated troponin Priority: Primary Status: Acute (5) DVT prophylaxis Priority: Secondary Status: Acute - Discharge Medications Home Medications: Furosemide [Lasix] 40 mg PO DAILY 11/20/15 [History] Metformin [Glucophage] 1,000 mg PO BID 11/20/15 [History] Tamsulosin [Flomax] 0.4 mg PO DAILY 11/20/15 [History] Aspirin [Lo-Dose Aspirin EC] 81 mg PO DAILY 07/05/16 [History] Atorvastatin [Lipitor] 20 mg PO HS 07/05/16 [History] Dabigatran [Pradaxa] 150 mg PO DAILY 07/05/16 [History] Insulin Glargine,Hum.rec.anlog [Lantus Solostar] 12 unit SQ BID 07/05/16 [ History] Insulin LISPRO [HumaLOG] 0 units SQ TIDWM PRN 07/05/16 [History] Isosorbide MONOnitrate (24 HR) [Imdur] 60 mg PO DAILY 07/05/16 [History] Metoprolol Tartrate 25 mg PO BID 07/05/16 [History] Allergies/Adverse Reactions: Allergies Penicillins Allergy (Verified 10/02/15 16:22) See Comments Sulfa (Sulfonamide Antibiotics) Allergy (Verified 10/02/15 16:22) See Comments Procedures/tests Complete & Pending: Procedures Performed prior 72 hours Category Date Time Status US retroperitoneal comp [US] Routine Exams 07/06/16 15:00 Completed Date of admission: 07/05/16 16:34 Primary care physician: Ramone Sharma Consults: 07/05/16 16:43 Consult to Wound Care [CONS] Routine Reason for Consult: left heal unstagable pressure ulcer Call Completed: No 07/05/16 19:20 Consult to Pastoral Services [CONS] Routine Comment: Discharging clinician: Yasir Quiñones Anticipated date of discharge: 07/08/16 - Patient Status Disposition: Transfer SNF Condition: Fair Functional capacity at discharge: independent ambulation Overall status at discharge: patient is progressing back to baseline - Discharge Instructions Follow Up With: Ramone Sharma MD [Primary Care Provider] - Additional Instructions: Please restart your home medications. Please follow up with your PCP. Please return for new or worsening symptoms. - Diet and Activity Activity: increase activity as tolerated Diet: diabetic diet, low salt diet Interval History: Patient seen and examined at bedside. Patient has no complaints today. Patient states he is ready to go. Hospital course: Mr. Benites is a 76 year old male with history of congestive heart failure and diabetes presented with hyperglycemia and lower extremity edema. The patient had apparently been out of his medicine for the past 3 days. The patient was restarted on his insulin and diuretics and his blood sugar and swelling improved significantly. Patient remained hospitalized for several days while ECF placement was determined for him. Patient is stable at time of discharge. - Time Spent with Patient Total time spent providing and/or coordinating discharge services: - Constitutional Vitals: Temp Pulse Resp BP Pulse Ox 97.7 F 59 18 137/78 95 07/08/16 11:51 07/08/16 11:51 07/08/16 11:51 07/08/16 11:51 07/08/16 11:51 General appearance: Present: A&O X 3, no acute distress - Respiratory Respiratory exam: Present: CTAB. Absent: rales, rhonchi, wheezes - Cardiovascular Cardiovascular exam: Present: RRR, +S1, +S2. Absent: gallop, rubs, systolic murmur - GI/Abdominal GI/Abdominal exam: Present: normal bowel sounds, soft. Absent: distended, tenderness - Extremities Exam Extremities exam: Present: pedal edema (1+). 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 insulin use: with mcc use Qualified Code(s): E11.65 - Type 2 diabetes mellitus with hyperglycemia; 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.4 - business transformation consultant (current) use of insulin (3) Acute kidney injury Status: Resolved (4) Hypertension Status: Acute Qualifiers: Hypertension type: essential hypertension Qualified Code(s): I10 - Essential (primary) hypertension Procedures/tests Complete & Pending: Procedures Performed prior 72 hours Category Date Time Status US retroperitoneal comp [US] Routine Exams 07/06/16 15:00 Completed Date of admission: 07/05/16 16:34 Primary care physician: Ramone Sharma Consults: 07/05/16 16:43 Consult to Wound Care [CONS] Routine Reason for Consult: left heal unstagable pressure ulcer Call Completed: No 07/05/16 19:20 Consult to Pastoral Services [CONS] Routine Comment: Hospital course: Mr. Benites is a 76 year old male - Time Spent with Patient Total time spent providing and/or coordinating discharge services: 40min - Constitutional Vitals: Temp Pulse Resp BP Pulse Ox 97.7 F 59 18 137/78 95 07/08/16 11:51 07/08/16 11:51 07/08/16 11:51 07/08/16 11:51 07/08/16 11:51 - Attending Attestation I examined this patient and my medical decision-making was reviewed with the Resident Physician on 07/08/16. I agree with the documented findings, disposition and treatment plan as described except to the extent set forth below. Mr. Benites is doing OK today except for GERD symptoms. No other new issues. No fever or chills. Vitals are stable and he is ready for d/c to rehab. Exam Alert. Comfortable Heart reg No wheeze - lungs diminished No edema Plan D/C today to SNF.
--- NOTE | 2016-07-08 13:58 | Physician Discharge Referral ---
<Yasir Quiñones - Last Filed: 07/08/16 13:56> [facility] Referral Info Transfer To: [facility] Provider in Charge after Transfer: PCP Institutional Level of Care: Skilled - Diagnosis (1) Hyperglycemia Priority: Primary Status: Acute (2) Acute kidney injury Priority: Primary Status: Resolved (3) Acute on chronic diastolic (congestive) heart failure Priority: Primary Status: Acute (4) Elevated troponin Priority: Secondary Status: Acute (5) DVT prophylaxis Status: Acute Prognosis: Fair Aware of Diagnosis: Patient Aware of Prognosis: Patient - Transfer Medications Home Medications: Furosemide [Lasix] 40 mg PO DAILY 11/20/15 [History] Metformin [Glucophage] 1,000 mg PO BID 11/20/15 [History] Tamsulosin [Flomax] 0.4 mg PO DAILY 11/20/15 [History] Aspirin [Lo-Dose Aspirin EC] 81 mg PO DAILY 07/05/16 [History] Atorvastatin [Lipitor] 20 mg PO HS 07/05/16 [History] Dabigatran [Pradaxa] 150 mg PO DAILY 07/05/16 [History] Insulin Glargine,Hum.rec.anlog [Lantus Solostar] 12 unit SQ BID 07/05/16 [ History] Insulin LISPRO [HumaLOG] 0 units SQ TIDWM PRN 07/05/16 [History] Isosorbide MONOnitrate (24 HR) [Imdur] 60 mg PO DAILY 07/05/16 [History] Metoprolol Tartrate 25 mg PO BID 07/05/16 [History] Allergies/Adverse Reactions: Allergies Penicillins Allergy (Verified 10/02/15 16:22) See Comments Sulfa (Sulfonamide Antibiotics) Allergy (Verified 10/02/15 16:22) See Comments - Respiratory Orders Smoking Cessation: Smoking cessation has been advised. For more information, call the [place] Tobacco Quit Line at 3-920-YOQN-NOW. - Advance Directives Code Status: DNR-Arrest - Mobility Orders Ambulate - Rehabiliation Orders Rehab Orders: Evaluation for Physical Therapy - Diet Orders No Added Salt (LUNA), Cardiac (Diabetic) CERTIFICATION: I certify that the transfer of the above named patient to an Extended Care Facility is necessary for the continuing treatment of the diagnosis listed. The above information is true and accurate reflection of patient's current condition. Confidential - Redisclosure prohibited without a patient's written consent. <Lance Fournier - Last Filed: 07/08/16 14:09> - Diagnosis (1) Acute on chronic diastolic (congestive) heart failure Status: Acute (2) Diabetes Status: Acute (3) Acute kidney injury Status: Resolved (4) Hypertension Status: Acute - Respiratory Orders Smoking Cessation: Smoking cessation has been advised. For more information, call the [place] Tobacco Quit Line at 8-465-EHKWNOW. CERTIFICATION: I certify that the transfer of the above named patient to an Extended Care Facility is necessary for the continuing treatment of the diagnosis listed. The above information is true and accurate reflection of patient's current condition. Confidential - Redisclosure prohibited without a patient's written consent.
== END 2016-07-08 17:18 | DRG 291 ==
LOC: EMEROO 10:51 → 2NENU 10:51 → SUATTDRO 16:34
PROVIDERS: ADMIT Nurse Practitioner Family; ATTEND Internal Medicine